=== PATIENT | male | born 1940 | race Caucasian/White ===

== ENCOUNTER → 2017-01-22 | Outpatient (CLI) | payer OTHER ==
[~2017-01-22] MED LIST: ADVIL200 M2 PO; ALLEGRA PO; AMLODIPINE BESYL5 MG PO; VICODIN 5/1 TAB 5/50 PO; VOLTAREN75 MG PO; VYTORIN 10-20 M1 TAB PO
--- NOTE | ~2017-01-22 | MR18 ---
[facility] A Service of [facility] RADIOLOGY TEXT RESULTS PATIENT: PIYUSH ANGUIANO LOCATION: [facility] : 36 UNIT #: [id number] AGE: [address]: Minor Robbins MD SEX: M ORDER DR: [id number] [address] [address] [id number] O MR#: [id number] #: [id number] NAME: PIYUSH ANGUIANO : 1940 SEX: M STUDY DATE/TIME: 01/22/2017 8:47 UNIT: [facility] ROOM: STUDY DESCRIPTION: MR Brain Wo Contrast Attending Physician: Minor Robbins M.D. Referring Physician: Minor Robbins M.D. Ordering Physician: Minor Rbobins M.D. Primary Care Physician: Minor Robbins M.D. MRI CENTER REPORT This report is preliminary unless electronic signature is present. EXAM MRI of the brain without contrast dated 01/22/2017. COMPARISON MRI brain without contrast dated 11/22/2012. HISTORY Increasing headaches. It is more severe and more frequent lasting more times in the last 2 months. FINDINGS Multisequence multiplanar imaging of the brain was obtained without contrast. No acute stroke, space-occupying intracranial mass, mass effect, midline shift or hydrocephalus. Multiple nonspecific nonenhancing scattered hyperintense T2-signal lesions are noted in the brain, more prominent in the biparietal periventricular white matter. Vascular flow voids of the major cerebral arteries and dural venous sinuses are not occluded in these thicker slices. Thick slices through the sella with the pituitary gland, pineal region and upper cervical spine are within normal limits. Paranasal sinus mucosal thickening is seen. S-shaped nasal septal deviation is seen. Status post left cataract surgery. Bilateral orbits, the ocular structures and mastoids do not demonstrate any significant abnormality. Minimal bilateral mastoid mucosal thickening if any is present. IMPRESSION 1. Nonspecific multiple hyperintense T2-signal lesions are scattered in the brain, likely related to mild to moderate chronic microvascular ischemic change or migraine given the history. 2. No acute intracranial abnormality. 3. Paranasal sinus and minimal bilateral mastoid mucosal thickening is seen with S-shaped nasal septal deviation. [facility]. [facility] A Service of [facility] RADIOLOGY TEXT RESULTS PATIENT: PIYUSH ANGUIANO LOCATION: [facility] : 36 UNIT #: [id number] AGE: [address]: Minor Robbins MD SEX: M ORDER DR: Dictated by... Clovis Lozano M.D. THIS IS AN ELECTRONICALLY VERIFIED REPORT Clovis Lozano M.D. at 01/24/2017 2:13 PM CPR/bd TD: 01/23/2017 11:24 JOB #: [id number] MRI CENTER REPORT Page 1 of 1
== END | disposition home or self-care (01) ==
LOC: SMRI 07:52
DX: R51 Headache (principal); J34.89 Other specified disorders of nose and nasal sinuses; M89.9 Disorder of bone, unspecified
CPT/HCPCS: 70551